=== PATIENT | male | born 2000 | race Caucasian/White ===

== ENCOUNTER 2023-01-11 08:00 | Outpatient (CLI) | payer OTHER ==
[2023-01-11 21:30] LABS: CHLAMYDIA TRACHOMATIS DNA NEGATIVE (NEGATIVE); NEISSERIA GONORRHOEAE DNA NEGATIVE (NEGATIVE); TRICHOMONAS VAGINALIS DNA NEGATIVE (NEGATIVE)
== END 2023-01-11 23:59 | disposition home or self-care (01) ==
LOC: LAB.N 08:00
PROVIDERS: ATTEND Emergency Medicine
DX: R35.0 Frequency of micturition (principal)
CPT/HCPCS: 87491; 87591; 87661